=== PATIENT | male | born 1970 | race African-American/Black ===

== ENCOUNTER 2019-03-25 11:23 | Outpatient (CLI) | payer BC ==
--- NOTE | 2019-03-25 12:09 | Mammography Report ---
DIGITAL DIAGNOSTIC MAMMOGRAM WITH CAD, -- 03/25/2019 INDICATION: 48-year-old male for follow-up of a biopsy-proven benign lipoma. TECHNIQUE: Digital bilateral mammographic imaging was performed. Spot compression views were obtaine d. This examination was interpreted with the benefit of Computer-aided Detection analysis. COMPARISON: 04/12/2016 FINDINGS: Breast Density: The breasts are almost entirely fatty. There is no evidence of dominant mass, suspicious calcifications or architectural distortion in eithe r breast. A right lower inner biopsy clip correlates with the location of a biopsy-proven benign lipo ma. There is suggestion of a 2 cm fat density mass on the CC view but it is not apparent on MLO views . IMPRESSION: No mammographic evidence of malignancy. Follow up recommendation: Clinical exam BI-RADS Category 2: Benign. A "normal" or negative report should not discourage follow up or biopsy of a clinically significant f inding. A written summary of these findings will be mailed to the patient. The patient will be entered into a mammography reporting system which will generate a reminder letter for the patient's next appointmen t at the appropriate interval. According to the [employer], yearly mammograms are recommended starting at age 40 and continuing as long as a woman is in good health. Breast MRI is recommended for women with an anny roximately 20-25% or greater lifetime risk of breast cancer, including women with a strong family his tory of breast or ovarian cancer and women who have been treated for Hodgkin's disease. Signer Name: Naeem Guidry MD Signed: 03/25/2019 12:04 PM Workstation Name: [id number]
== END 2019-03-25 11:24 | disposition home or self-care (01) ==
LOC: SPVWC 11:23
PROVIDERS: ATTEND Surgery
DX: D24.1 Benign neoplasm of right breast (principal); R92.8 Other abnormal and inconclusive findings on diagnostic imaging of breast
CPT/HCPCS: 77066